=== PATIENT | male | born 1950 | race Caucasian/White ===

== ENCOUNTER 2021-09-21 06:10 | Day surgery (SDC) | payer MEDICARE ==
[2021-09-20 12:48] LABS: EOSINOPHILS # (AUTO) 0.2 X10'3 (0-0.9); NEUTROPHILS # (AUTO) 3.9 X10'3 (1.8-7.7)
[2021-09-20 12:49] LABS: BASOPHILS # (AUTO) 0.1 X10'3 (0-0.2); BASOPHILS % (AUTO) 1.1 % (0-1); EOSINOPHILS % (AUTO) 2.9 % (0-6); HEMATOCRIT 48.6 % (42.0-52.0); LYMPHOCYTES # (AUTO) 1.1 X10'3 (1.1-4.8); LYMPHOCYTES % (AUTO) 19.3 % (21-51); MEAN CORPUSCULAR HEMOGLOBIN 33.5 PG (27.0-31.0); MEAN CORPUSCULAR VOLUME 95.7 FL (78-98); MEAN PLATELET VOLUME 8.8 FL (7.4-10.4); MONOCYTES # (AUTO) 0.7 X10'3 (0-0.9); MONOCYTES % (AUTO) 11.6 % (2-12); NEUTROPHILS % (AUTO) 65.1 % (42-75); PLATELET COUNT 185 X10'3 (140-440); RED BLOOD COUNT 5.07 X10'6 (4.70-6.10); RED CELL DISTRIBUTION WIDTH 13.4 % (11.5-14.5)
[2021-09-20 12:50] LABS: ALBUMIN 3.9 G/DL (3.4-5.0); ANION GAP 9 (8-16); BLOOD UREA NITROGEN 15 MG/DL (7-18); BUN/CREATININE RATIO 14.3 (5.4-32.0); CALCIUM 8.8 MG/DL (8.5-10.1); CHLORIDE 107 MMOL/L (99-107); CREATININE 1.05 MG/DL (0.60-1.10); GLUCOSE 92 MG/DL (70-104); SODIUM 143 MMOL/L (135-145); TOTAL CARBON DIOXIDE 27.3 MMOL/L (24-32); eGFR 70 ML/MIN
[2021-09-20 12:53] LABS: APTT 26 SECONDS (22-32)
[2021-09-21] VITALS (11 sets, daily range): BP systolic 79–146; BP diastolic 41–66
[~2021-09-21] VITALS: Ht 172.7 cm; Wt 107.0 kg
[~2021-09-21 06:10] MED LIST: ACET1TAB12 PO; ASPI-611 PO; CARV3.122 PO; CYAN-51 PO; LISI1TAB51 PO; LOPE1TAB46 PO; LORA10TA61 PO; MULT-38 PO; PRAS10TA6 PO; SIMV-42 PO; WHEA98PO PO
[2021-09-21] MEDS ORDERED: diphenhydrAMINE 25mg capsule PO PRN (06:40)
[2021-09-21] MEDS ORDERED: LORazepam 0.5 MG tablet PO PRN (06:40)
[2021-09-21] MEDS ORDERED: normal saline 1,000 ML IV SCH (06:40)
[2021-09-21] MEDS ORDERED: LIDOcaine 1% w/EPI 1:200,000 10 ML, BUPIVAcaine 2.5mg/ml/PF 25 MG 10mL SQ ONE ×2 (06:45)
[2021-09-21] MEDS ORDERED: GABA300C PO (06:50)
[2021-09-21] MEDS ORDERED: DOXE10CA3 PO (06:50)
[2021-09-21] MEDS ORDERED: LACT1CAP65 PO (06:50)
[2021-09-21] MEDS ORDERED: LIDOcaine/PRILOcaine 5gm cream TP ONE (07:05)
[2021-09-21] MEDS: acetylcysteine 200 MG/ml 4ml vial PO PRN ×2 (07:09→14:39)
[2021-09-21] MEDS ORDERED: nitroGLYCERIN-Tridil 50MG/D5W 250 ML IV ONE (07:28)
[2021-09-21] MEDS ORDERED: fentaNYL/PF 50MCG/1 ML 2ML syringe ONE (07:28)
[2021-09-21] MEDS ORDERED: midazolam 1 mg/ML 2ml injection ONE (07:28)
[2021-09-21] MEDS ORDERED: LIDOcaine 1% 30ml preserv. free vial ONE (07:28)
[2021-09-21] MEDS ORDERED: verapamil 2.5 mg/ml inj IV ONE (07:28)
[2021-09-21] MEDS ORDERED: heparin 1,000unit/ml 10ml vial 10 ML ONE (07:29)
[2021-09-21] MEDS ORDERED: pneumococcal 23-VAL P-sac vacc 25 mcg/0.5ml vial IMVAC ONE (08:20)
[2021-09-21] MEDS ORDERED: heparin 25,000 UNIT/250ml bag 250 ML IV ONE (08:56)
[2021-09-21] MEDS ORDERED: iohexol 350MG/ML 100ml bottle IV ONE ×2 (08:58→09:14)
[2021-09-21] MEDS ORDERED: ticagrelor 90mg tablet ONE (09:32)
[2021-09-21] MEDS ORDERED: normal saline 1000ml 1,000 ML IV SCH (10:05)
--- NOTE | 2021-09-21 14:40 | NUR ---
IV infusing as ordered.
--- NOTE | 2021-09-21 14:41 | NUR ---
pt has voided 600ml yellow, clear
--- NOTE | 2021-09-21 15:21 | NUR ---
Educated patient on discharge instruction. Clarified with MD, pt is to stop Effient and start new prescription for Brilinta. Pt's has Brilinta medication at the bedside. Pt was also educated on increase on statin. Pt verbalized understanding of verbal and written instructions. All questions answered.
== END 2021-09-21 16:00 | disposition home or self-care (01) ==
LOC: SSTAY O 06:10
PROVIDERS: ATTEND Internal Medicine Cardiovascular Disease
DX: R94.39 Abnormal result of other cardiovascular function study (principal); T82.855A Stenosis of coronary artery stent, initial encounter; I25.119 Atherosclerotic heart disease of native coronary artery with unspecified angina pectoris; I25.82 Chronic total occlusion of coronary artery; I10 Essential (primary) hypertension; E66.9 Obesity, unspecified; Z68.34 Body mass index [BMI] 34.0-34.9, adult; G62.9 Polyneuropathy, unspecified; E78.49 Other hyperlipidemia; Z86.010 Personal history of colon polyps; Z85.038 Personal history of other malignant neoplasm of large intestine; Z95.5 Presence of coronary angioplasty implant and graft; Z90.49 Acquired absence of other specified parts of digestive tract; Z98.890 Other specified postprocedural states; Z88.0 Allergy status to penicillin; Z88.8 Allergy status to other drugs, medicaments and biological substances; Z79.899 Other long term (current) drug therapy; Z82.3 Family history of stroke; Z82.49 Family history of ischemic heart disease and other diseases of the circulatory system; Y83.8 Other surgical procedures as the cause of abnormal reaction of the patient, or of later complication, without mention of misadventure at the time of the procedure; Y92.89 Other specified places as the place of occurrence of the external cause
CPT/HCPCS: 36415; 76937; 80048; 85025; 85347; 85610; 85730; 93005; 93458; 99152; 99153; A6258; C1725; C1751; C1769; C1874; C1894; C9607; J1644; J2250; J3010; J3490; J7030; Q0163; Q9967; A4620; A5120; A6402

== ENCOUNTER 2022-11-08 06:49 | Day surgery (SDC) | payer MEDICARE ==
[2022-11-07 09:35] LABS: EOSINOPHILS # (AUTO) 0.2 X10'3 (0-0.9); MONOCYTES # (AUTO) 0.7 X10'3 (0-0.9)
[2022-11-07 09:37] LABS: BASOPHILS % (AUTO) 0.3 % (0-1); HEMATOCRIT 47.2 % (42.0-52.0); HEMOGLOBIN 16.3 g/dl (14.0-17.9); MEAN CORPUSCULAR HEMOGLOBIN 32.6 PG (27.0-31.0); MEAN CORPUSCULAR HGB CONC 34.6 g/dL (33.0-36.5); MEAN CORPUSCULAR VOLUME 94.3 FL (78-98); MEAN PLATELET VOLUME 8.6 FL (7.4-10.4); MONOCYTES % (AUTO) 9.5 % (2-12); NEUTROPHILS # (AUTO) 5.1 X10'3 (1.8-7.7); NEUTROPHILS % (AUTO) 73.2 % (42-75); PLATELET COUNT 178 X10'3 (140-440); RED CELL DISTRIBUTION WIDTH 14.3 % (11.5-14.5); WHITE BLOOD COUNT 6.9 X10'3 (4.5-11.0)
[2022-11-07 09:44] LABS: ALBUMIN 3.8 G/DL (3.4-5.0); ANION GAP 10 (8-16); BLOOD UREA NITROGEN 24 MG/DL (7-18); BUN/CREATININE RATIO 16.3 (10.0-20.0); CALCIUM 9.4 MG/DL (8.5-10.1); CHLORIDE 104 MMOL/L (99-107); CREATININE 1.47 MG/DL (0.60-1.10); GLUCOSE 119 MG/DL (70-104); POTASSIUM 3.6 MMOL/L (3.5-5.1); SODIUM 140 MMOL/L (135-145); TOTAL CARBON DIOXIDE 26.3 MMOL/L (24-32); eGFR 47 ML/MIN
[2022-11-07 09:47] LABS: APTT 26 SECONDS (22-32); PROTHROMBIN TIME 10.9 SECONDS (9.0-12.0)
[~2022-11-08] VITALS: Ht 172.7 cm; Wt 100.7 kg
[2022-11-08] VITALS (11 sets, daily range): BP systolic 104–129; BP diastolic 38–87; PULSE 48–62; RESP 14–16; TEMP 98.2; O2SAT 93–96
[~2022-11-08 06:49] MED LIST changes: -ACET1TAB12 PO; +CYAN-104 PO; -CYAN-51 PO; +DOXE10CA3 PO; +GABA300C PO; +LACT1CAP65 PO; -LOPE1TAB46 PO
[2022-11-08] MEDS ORDERED: normal saline 1,000 ML IV SCH (07:25)
[2022-11-08] MEDS ORDERED: diphenhydrAMINE 25mg capsule PO PRN (07:25)
[2022-11-08] MEDS ORDERED: LORazepam 0.5 MG tablet PO PRN (07:25)
[2022-11-08] MEDS ORDERED: sodium bicarbonate 1meq/ml syr 150 ML in dextrose 5%-water 1,000 ML IV SCH (07:30)
[2022-11-08] MEDS ORDERED: TICA90TA2 PO (07:57)
[2022-11-08] MEDS ORDERED: ROSU40TA22 PO (07:57)
[2022-11-08] MEDS ORDERED: LOPE2CAP PO (07:58)
[2022-11-08] MEDS ORDERED: acetylcysteine 200 MG/ml 4ml vial PO ONE (08:15)
[2022-11-08] MEDS ORDERED: LIDOcaine 1% (10mg/ml) 2ml vial ONE (08:33)
[2022-11-08] MEDS ORDERED: nitroGLYCERIN-Tridil 50MG/D5W 250 ML IV ONE (08:33)
[2022-11-08] MEDS ORDERED: verapamil 2.5 mg/ml inj IV ONE (08:33)
[2022-11-08] MEDS ORDERED: heparin 1,000unit/ml 10ml vial 10 ML ONE (08:33)
[2022-11-08] MEDS ORDERED: midazolam 1 mg/ML 2ml injection ONE (08:33)
[2022-11-08] MEDS ORDERED: fentaNYL/PF 50MCG/1 ML 2ML syringe ONE (08:33)
[2022-11-08] MEDS ORDERED: iohexol 350 MG/ML 50ML vial IV ONE (08:33)
[2022-11-08] MEDS ORDERED: iohexol 350MG/ML 100ml bottle IV ONE (08:33)
== END 2022-11-08 14:00 | disposition home or self-care (01) ==
LOC: SSTAY O 06:49
PROVIDERS: ATTEND Internal Medicine Cardiovascular Disease
DX: I25.119 Atherosclerotic heart disease of native coronary artery with unspecified angina pectoris (principal); I10 Essential (primary) hypertension; E78.5 Hyperlipidemia, unspecified; I25.2 Old myocardial infarction; G62.9 Polyneuropathy, unspecified; E66.9 Obesity, unspecified; Z68.34 Body mass index [BMI] 34.0-34.9, adult; Z85.038 Personal history of other malignant neoplasm of large intestine; Z86.010 Personal history of colon polyps; Z95.5 Presence of coronary angioplasty implant and graft; Z90.49 Acquired absence of other specified parts of digestive tract; Z98.890 Other specified postprocedural states; Z88.0 Allergy status to penicillin; Z88.8 Allergy status to other drugs, medicaments and biological substances; Z79.899 Other long term (current) drug therapy; Z79.01 Long term (current) use of anticoagulants; Z82.49 Family history of ischemic heart disease and other diseases of the circulatory system; Z82.3 Family history of stroke
CPT/HCPCS: 76937; 80048; 85025; 85610; 85730; 93005; 93458; 99152; A6258; J1644; J2250; J3010; J3490; J7030; J7070; Q0163; Q9967; A6402; C1725; C1894